=== PATIENT | female | born 1990 | race Hispanic/Latino ===

== ENCOUNTER 2019-07-26 01:28 | Inpatient (IN) | payer SELFPAY ==
[2019-07-26] MEDS ORDERED: Dextrose 50% Abboject 50 ML SYRINGE SLOW IVP PRN (02:08)
[2019-07-26] MEDS ORDERED: Dextrose 5% in Water 1,000 ML IV PRN (02:08)
[2019-07-26] MEDS ORDERED: Ondansetron PF 4 MG/2 ML Vial IVP PRN (02:08)
[2019-07-26] MEDS ORDERED: Ondansetron ODT 4 MG TAB PO PRN (02:08)
[2019-07-26] MEDS ORDERED: Morphine 2 MG/ML SYRINGE SLOW IVP PRN (02:08)
[2019-07-26 02:10] LABS: #Lymphocytes 1.2 thou/uL (1.20-3.40); #Monocytes 0.2 thou/uL (0.11-0.59); #Neutrophils 8.9 thou/uL (1.40-6.50); %Basophils 0.4 % (0.0-1.0); %Eosinophils 0.4 % (0.0-10.0); %Lymphocytes 11.2 % (21.0-51.0); %Monocytes 1.9 % (0.0-10.0); %Neutrophils 86.1 % (42.0-75.0); Hemoglobin 14.1 g/dL (12.0-16.0); Mean Corpuscular HGB CONC 34.8 g/dL (32.0-36.0); Mean Corpuscular Hemoglobin 32.8 pg (27.0-31.0); Mean Corpuscular Volume 94.3 fL (78.0-98.0); Mean Platelet Volume 7.5 fL (7.4-10.4); Platelet Count 252 thou/uL (130-400); RBC Distribution Width 12.1 % (11.5-14.5); Red Blood Cell (RBC) Count 4.31 mill/uL (4.20-5.40); White Blood Cell (WBC) Count 10.3 thou/uL (4.8-10.8)
[2019-07-26] MEDS ORDERED: traMADol HCl 50 MG TAB PO PRN ×2 (02:13)
[2019-07-26 02:16] LABS: BHCG - Serum Negative (NEGATIVE); Pregs Control Background? CLEAR/WHITE (CLR/WHITE); Pregs Control Bar Appear? YES (CONTROL BAR)
[2019-07-26 02:32] LABS: ALT (SGPT) 13 U/L (8-55); AST (SGOT) 20 U/L (5-34); Albumin 4.7 g/dL (3.5-5.0); Alcohol 272 mg/dL (Less than 10); Alkaline Phosphatase 57 U/L (40-110); Anion Gap 12 mmol/L (10-20); BUN (Urea Nitrogen) 9 mg/dL (7.0-18.7); Bilirubin, Total 0.2 mg/dL (0.2-1.2); Calc. Creatinine Clearance 0 mL/min (70-130); Calcium 8.9 mg/dL (7.8-10.44); Carbon Dioxide 24 mmol/L (22-29); Chloride 109 mmol/L (98-107); Estimated GFR-MDRD Greater than 90; Globulin 2.7 g/dL (2.4-3.5); Glucose 111 mg/dL (70-105); Potassium 4.1 mmol/L (3.5-5.1); Protein, Total 7.4 g/dL (6.0-8.3); Sodium 141 mmol/L (136-145)
[2019-07-26 02:33] LABS: Phosphorus 3.8 mg/dL (2.3-4.7)
--- NOTE | 2019-07-26 03:03 | HP ---
REQUESTING PHYSICIAN: Dr. Bah. CONSULTS: Orthopedic Surgery, Dr. Reilly. HISTORY OF PRESENT ILLNESS: This is a 28-year-old female, who was dancing and fell injuring her right ankle. The patient presented to the emergency room with obvious right ankle deformity and pain. She reports having approximately 5 alcoholic drinks tonight. The patient denies any other injuries or hitting her head. The patient was evaluated in the emergency room and was found to have a comminuted spiral fracture of the right tibia and fracture of the right distal fibula with out any neurovascular compromise. The patient's right ankle was splinted in the emergency room. Trauma services was asked to admit. REVIEW OF SYSTEMS: A 10-point review of systems is negative unless otherwise indicated in the above HPI. PAST MEDICAL HISTORY: Denies. ALLERGIES: PENICILLIN. HOME MEDICATIONS: None. SOCIAL HISTORY: Occasional alcohol use, denies smoking, denies any illicit drug use. PAST SURGICAL HISTORY: Denies. PHYSICAL EXAMINATION: VITAL SIGNS: Blood pressure 142/100, pulse 90, SpO2 of 99% on room air, respirations 18, and temperature 98.9. GENERAL: The patient is awake, alert and oriented, well-appearing female, in no apparent distress, positive EtOH. HEENT: Unremarkable, atraumatic, normocephalic. Pupils are equal, reactive, moist mucous membranes. NECK: No cervical tenderness, normal range of motion, trachea midline. RESPIRATORY: Equal chest rise and fall, bilateral breath sounds clear. No wheezing, rales or rhonchi. CARDIOVASCULAR: Regular rate, regular rhythm. No murmurs. ABDOMEN: Soft, nontender, and nondistended. BACK: Normal inspection, normal range of motion. EXTREMITIES: Right ankle pain; splint clean, dry, and intact; cap refill less than 2 seconds; distal pulses intact. Other extremities are unremarkable. NEUROLOGIC: Oriented to person, place, time, and event. No focal deficits. DIAGNOSTIC DATA: Chest x-ray, impression, no acute cardiopulmonary process. Ankle x-ray, right ankle comminuted spiral fracture of tibia, fracture of distal fibula. LABORATORY DATA: WBC 10.3, RBC 4.31, hemoglobin 14.1, hematocrit 40.6, and MCH 32.8. Serum negative. CMP is pending. ASSESSMENT: 1. Ground-level fall. 2. Right comminuted spiral fracture of the tibia and fracture of the distal fibula. 3. Acute alcohol intoxication. 4. Acute traumatic pain. PLAN: Admit to the surgical floor. Dr. Rielly plans to take the patient to the OR later today. The patient will be n.p.o. We will place a PT/OT consult to evaluate and treat postop. Most likely, the patient will be able to be discharged home postop if her pain is well controlled and able to ambulate safely. The plan will be discussed with the attending after this dictation. The plan was discussed with the patient, who agrees. Job ID: [id number] MTDD
[2019-07-26] MEDS: Acetaminophen 1,000 MG in Premix Bag 1 BAG IVPB SCH ×3 (05:42→17:46)
[2019-07-26] MEDS: Sodium Chloride 0.9% 1,000 ML IV SCH ×2 (05:42→17:09)
[2019-07-26] MEDS: Ibuprofen 600 MG TAB PO SCH ×3 (06:07→21:26)
[2019-07-26] MEDS ORDERED: Clindamycin/D5W 900 MG in Premix Bag 1 BAG IVPB SCH (07:15)
--- NOTE | 2019-07-26 07:29 | CON ---
DATE OF CONSULTATION: This is Cheikh Simmons PA-C dictating a report for Misbah Reilly MD. HISTORY OF PRESENT ILLNESS: The patient was out dancing last night, having a few drinks and stumbled and fell sustaining a right tibial fracture. The patient was unable to walk after the fracture. She denies any numbness and tingling on the right lower extremity. Sensations are good. She denies any other injuries with the fall. Since she has been here, she has been fairly comfortable. PAST MEDICAL HISTORY: Healthy. PAST SURGICAL HISTORY: None stated. SOCIAL HISTORY: Occasional EtOH. Smokes when drinking. No illicit drug use. MEDICATIONS: None. ALLERGIES: PENICILLIN. REVIEW OF SYSTEMS: Right lower extremity pain. Otherwise, no chest pain or shortness of breath. No bowel or bladder issues. Rest of review of systems is negative. PHYSICAL EXAMINATION: GENERAL: Well-nourished, well-developed young female, resting in bed, in room 3303 no acute distress. NEURO: Speech clear. Affect pleasant. Answers questions appropriately. She is alert and oriented x3/ HEENT: Normal exam. Face symmetric. Tongue midline. NECK: Supple. Trachea mid. RESPIRATORY: No acute distress. Breathing 16 per minute. EXTREMITIES: Upper extremities, equal size, shape and symmetry. Normal bulk and tone. Lower extremities, some pain in the right lower extremity. Movement, fair in the foot and digits. PT pulses on the right are equal with PT pulses on the left. ASSESSMENT: Tibial shaft fracture. PLAN: I spoke with the patient, went over the risks and benefits of surgery. Our plan is to do a tibial rodding. I explained the procedure, risks, and benefits. Her questions and concerns have been answered and she is amenable to go forth with surgery. We will get her on the surgery schedule, get her some antibiotics and get her set up for around 1230 hours this afternoon. Keep her n.p.o. through that time. If she has further questions prior to surgery, we will address those at that time. Job ID: [id number]
--- NOTE | 2019-07-26 08:47 | RAD ---
THREE VIEWS RIGHT ANKLE: DATE: 07/26/2019. COMPARISON: None. HISTORY: Fall, trauma, pain. FINDINGS: There is a comminuted obliquely oriented fracture involving the mid/distal right tibial shaft with 6 mm of lateral displacement in mild medial angulation. Additional obliquely oriented spiral-type frac ture line noted further distally within the right tibial shaft. In addition, there is a transverse f racture at the base of the medial malleolus in an obliquely oriented distal right fibular fracture. Posterior malleolar fracture noted on the lateral exam. No evidence for dislocation. IMPRESSION: Multiple fractures as described above. POS: [facility]
--- NOTE | 2019-07-26 08:52 | RAD ---
FRONTAL AND LATERAL IMAGING OF RIGHT TIBIA AND FIBULA: Date: 07/26/19 COMPARISON: None. HISTORY: Fall, trauma, pain. FINDINGS: Obliquely oriented, mildly displaced and angulated fracture of right tibial shaft at junction of midd le and distal third. Additional obliquely oriented fracture line noted within the distalmost aspect o f the right tibial shaft. There is also a transverse fracture at the base of the medial malleolus and an obliquely oriented fracture involving the distal fibular shaft. Mildly displaced posterior malleo lar fracture noted. IMPRESSION: Multiple fracture deformities of the right tibia/fibula distally as detailed above. POS: [facility]
--- NOTE | 2019-07-26 09:01 | RAD ---
PORTABLE UPRIGHT FRONTAL CHEST RADIOGRAPH: DATE: 07/26/2019. COMPARISON: None. HISTORY: Fall, trauma, preoperative patient. FINDINGS: Lungs are clear. Heart and mediastinal contours are unremarkable. IMPRESSION: No acute findings. POS: [facility]
[2019-07-26] MEDS ORDERED: Morphine 4 MG/ML VIAL SLOW IVP SCH (09:30)
[2019-07-26] MEDS ORDERED: Ondansetron PF 4 MG/2 ML Vial ONE (10:22)
[2019-07-26] MEDS ORDERED: Lidocaine 1% PF 5 ML VIAL ONE (10:22)
[2019-07-26] MEDS ORDERED: PROPOFOL 200 MG/20 ML VIAL ONE (10:22)
[2019-07-26] MEDS ORDERED: Ketorolac Tromethamine 30 MG/ML VIAL ONE (10:22)
--- NOTE | 2019-07-26 11:49 | PRG ---
DATE OF SERVICE: SUBJECTIVE: Ms. Cazares is a 28 years old_ female, who was dancing and drinking yesterday, fell and broke her right ankle. She is n.p.o. since midnight and ready to go to OR with Ortho today. This morning, the patient complained of pain of the right ankle 8 to 9/10. She then asked for PIM pain medication. Her vital signs are stable. OBJECTIVE: GENERAL: The patient lying down in bed comfortable with no acute respiratory distress, though she on moderate distress due to pain from the right ankle. VITAL SIGNS: Temperature 99, heart rate 88, respiratory rate 16, O2 saturation 96% on room air, blood pressure 108/62. LUNGS: Clear bilaterally. HEART: Regular rate and rhythm. ABDOMEN: Soft, nondistended. EXTREMITIES: Neurovascularly intact x4. Right lower extremity dry, clean, intact. No signs of compartment syndrome. NEUROLOGIC: No focal neurology deficits. ASSESSMENT: 1. Status post ground level fall. 2. Right comminuted spiral fracture of the tibia and fracture of the distal fibula, acute traumatic pain. PLAN: We will have morphine 4 mg one dose right now. Continue PIM where the patient plan to go to the OR with Orthopedics for ORIF of right ankle fracture today. Postop, the patient will work with PT and OT. Anticipate discharge home tomorrow. Job ID: [id number] MTDD
[2019-07-26] MEDS ORDERED: Morphine 4 MG/ML VIAL ONE (13:02)
[2019-07-26] MEDS ORDERED: Midazolam HCl 2 mg/2 ml Vial ONE (13:02)
[2019-07-26] MEDS ORDERED: Fentanyl 100 MCG/2 ML VIAL ONE ×2 (13:56→16:03)
[2019-07-26] MEDS ORDERED: Morphine Sulfate 2 MG/ML SYRINGE SLOW IVP PRN (14:52)
[2019-07-26] MEDS ORDERED: Promethazine HCl 25 MG/ML VIAL SLOW IVP PRN (14:52)
[2019-07-26] MEDS ORDERED: Promethazine HCl 25 MG/ML VIAL IM PRN (14:52)
[2019-07-26] MEDS ORDERED: Ondansetron HCl/PF 4 MG/2 ML Vial IVP PRN (14:52)
[2019-07-26] MEDS ORDERED: Meperidine HCl/PF 25 MG/ML VIAL ONE (15:39)
[2019-07-26] MEDS: Famotidine 20 MG TAB PO SCH ×2 (16:57→20:47)
[2019-07-26] MEDS: Polyethylene Glycol 3350 17 GM Packet PO SCH (16:57)
[2019-07-26] MEDS: Clindamycin/D5W 600 MG in Premix Bag 1 BAG IVPB SCH ×2 (17:09→21:26)
[2019-07-26] MEDS: Fentanyl 100 MCG/2 ML VIAL SLOW IVP PRN ×2 (17:49→22:12)
--- NOTE | 2019-07-26 18:46 | RAD ---
Radiograph right ankle 2 views: DATE: 07/26/2019 3:38 PM HISTORY: 28-year-old female with fractures of tibia and fibula. COMPARISON: 07/26/2019 1:27 AM FINDINGS: Small [id number] fluoroscopic spot images obtained with C-arm in the OR demonstrate interval place ment of lateral metallic plate and screws from distal fibular diaphysis to lateral malleolus. Lateral malleolar fracture fragments are in anatomical alignment. Comminuted displaced fracture of mi d-distal tibial shaft is partially included on the images. IMPRESSION: Status post open reduction internal fixation of lateral malleolar fracture.
--- NOTE | 2019-07-26 18:48 | RAD ---
Radiograph right leg tibia-fibula 2 views: DATE: 07/26/2019 4:29 PM HISTORY: 28-year-old female status post acute fractures of tibia and fibula. COMPARISON: 07/26/2019 at 1:26 AM FINDINGS: A total of 5 small [id number]-so-[id number] fluoroscopic spot images obtained with C-arm in the OR. Intramedulla ry nail has been placed through the entire tibial diaphysis, with proximal and distal stabilization screws. There has been interval reduction of the comminuted fracture of the tibial diaphysis. Alignme nt is anatomical. There has been placement of plate and screws across the distal fibula. IMPRESSION: Intramedullary nail fixation of the mid tibial shaft fracture.
[2019-07-26] MEDS: HYDROcodone/Acetaminophen 10/325 mg Tablet PO PRN (20:47)
[2019-07-26] MEDS ORDERED: FLU VACC QS2019-20(6MOS UP)/PF 60 MCG/0.5 ML SYRINGE IM ONE (21:00)
--- NOTE | 2019-07-26 22:01 | OP ---
DATE OF PROCEDURE: 07/26/2019 PREOPERATIVE DIAGNOSES: Right distal third tibial metadiaphyseal closed fracture with an accompanying Mo B right distal fibular fracture and a right distal tibial posterior malleolus fracture. POSTOPERATIVE DIAGNOSES: Right distal third tibial metadiaphyseal closed fracture with an accompanying Mo B right distal fibular fracture and a right distal tibial posterior malleolus fracture. PROCEDURES PERFORMED: Open reduction and internal fixation, Mo B distal fibular fracture with closed reduction with intramedullary nail fixation of distal third metadiaphyseal tibial fracture. Closed reduction and splinting of posterior malleolar ankle fracture. ASSEMBLER FILTERS: Dante Kent PA-C ANESTHESIA: General via LMA. COMPONENTS USED: Synthes 9 mm x 315 mm cannulated titanium tibial nail with three interlocking screws, one proximal, two distal, static as well as a tibular seven hole 3.5 locking stainless steel plate. TOURNIQUET TIME: 27 minutes. FINDINGS: Adequate bone stock and fractures as described on radiograph. ESTIMATED BLOOD LOSS: 250 mL. DRAINS: None. SPECIMENS: None. COMPLICATION: None. COUNTS: Correct. INDICATION FOR SURGERY: Linh is a 28-year-old female, who apparently injured herself yesterday evening while dancing. She fell resulting in a right distal tibial fracture as described on radiographs. She has elected to proceed with open reduction and internal fixation of her distal fibular fracture, closed reduction of the posterior malleolus and intramedullary nail fixation of the tibia as definitive treatment of this problem. DESCRIPTION OF PROCEDURE: After informed consent was obtained in the preoperative holding area, the patient received preoperative antibiotics, was taken to the operative suite. General anesthesia was induced and LMA was placed secured. Once adequate anesthesia was obtained, the patient was positioned appropriately in the supine position. Prior to exsanguination, a time-out was called and a multidisciplinary time-out was observed. After this, the tourniquet was raised, where it remained for the portion of the fibular fixation. A lateral incision was made directly over the fibular fracture. Sharp dissection was carried down to the bone. Periosteal elevator was used to remove the periosteum. We chose a seven hole plate, the medial reduction was achieved with lobster claw clamps in AP plane. We used an interfrag screw to preliminary hold the fracture in place. I then placed a seven hole plate with preliminarily bending and contouring intraoperatively. We used a seven hole span three at top and two screws distal. Attention was then turned to intramedullary preparation and closed reduction was performed. Fluoroscopy was brought into the field and an entry hole was obtained with a guide pin. We chose a patella tendon split. It was center-center and AP projection and lateral was appropriate. This was over-reamed with a 15 mm entry reamer. We placed the intramedullary reaming eliza down with ball-tip to the ankle. This was obtained in AP view. It was confirmed with lateral views. Once this was completed, sequential reaming in a reduced state was performed up to 10 mm. We then chose a 9 mm nail. It was malleted squarely into place. The outrigger was used to place the proximally locking screw and the perfect circles were used to visualize the distal screws and then two AP screws were placed. A copious irrigation was carried out at the entry site. Stainless steel cassi were used to reapproximate the skin. In the entry hole, we used a 0 Vicryl interrupted simple stitches followed by subcutaneous 2-0 stitches and stainless steel cassi to reapproximate the skin. Sterile dressings were applied in all areas. A posterior splint was applied and allowed to cure and the procedure was terminated without any complications. Also of note, the tourniquet was not used for the tibial nail portion of the case. This was used only for the distal fibula fixation. The patient was taken to recovery room in stable condition and the LMA was removed. Job ID: [id number]
--- NOTE | 2019-07-26 22:12 | PRG ---
DATE OF SERVICE: 07/26/2019 SUBJECTIVE: The patient remains on the surgical floor. The patient is postop repair of her right comminuted spiral fracture of the tibia and fracture of the distal fibula. The patient is currently awake, alert, in no distress. The patient is tolerating a regular diet. The patient continues to have moderate pain. The patient has not worked with Physical Therapy yet. OBJECTIVE: VITAL SIGNS: Stable, afebrile. GENERAL: Awake and alert, resting in hospital bed, in no acute distress. The patient does report moderate amount of pain to right ankle. RESPIRATORY: Equal chest rise and fall. No respiratory distress. Good inspiratory and expiratory effort. HEART: Regular rate, regular rhythm. EXTREMITIES: Neurovascularly intact x4. Right lower extremity splint clean, dry, and intact. Cap refill less than 2 seconds. ASSESSMENT: 1. Status post ground level fall. 2. Right comminuted spiral fracture of the tibia and fracture of the distal fibula, postop repair today. 3. Acute traumatic pain. PLAN: Continue supportive care. We will stop patient's IV maintenance fluids as she is tolerating diet and fluids. We will schedule the patient's pain regimen. The patient will work with Physical and Occupational Therapy tomorrow morning. The patient should be able to be discharged home if she is able to ambulate safely and her pain is well controlled. Plan was discussed with the patient's family, who agrees. Job ID: [id number]
[2019-07-27] MEDS: Acetaminophen 325 MG TAB PO SCH ×2 (00:01→06:20)
[2019-07-27] MEDS: HYDROcodone/Acetaminophen 10/325 mg Tablet PO PRN ×3 (03:19→12:56)
[2019-07-27] MEDS: Clindamycin/D5W 600 MG in Premix Bag 1 BAG IVPB SCH (06:20)
[2019-07-27] MEDS: Ibuprofen 600 MG TAB PO SCH ×2 (06:20→12:55)
[2019-07-27] MEDS ORDERED: diphenhydrAMINE 25 MG CAP PO PRN (06:36)
[2019-07-27] MEDS: Polyethylene Glycol 3350 17 GM Packet PO SCH (08:01)
[2019-07-27] MEDS: Famotidine 20 MG TAB PO SCH (08:07)
[2019-07-27 12:42] VITALS: BP 111/73; TEMP 98.2
--- NOTE | 2019-07-27 12:56 | DIS ---
DATE OF ADMISSION: 07/26/2019 DATE OF DISCHARGE: 07/27/2019 DISCHARGE DIAGNOSES: Fall from standing, right comminuted spiral fracture of the distal tibia and fibula, acute alcohol intoxication. DISCHARGE DIAGNOSES: Fall from standing, right comminuted spiral fracture of the distal tibia and fibula, acute alcohol intoxication. CONSULTING PHYSICIAN: Dr. Reilly of Orthopedic Surgery. PROCEDURES: The patient went to the OR on June 25, 2019, for an open reduction and internal fixation, Mo B distal fibular fracture with closed reduction and intramedullary nail fixation of distal third metadiaphyseal tibial fracture. Closed reduction and splinting of posterior malleolar ankle fracture. HOSPITAL COURSE: The patient is a 28-year-old female, who presented to the emergency department after a fall while dancing. The patient was intoxicated at the time and was found that she had a right comminuted spiral fracture of the distal right tib-fib. She was admitted to the hospital and was kept n.p.o. She was taken to the OR later that morning by Dr. Reilly for fixation of her right ankle fracture. Postoperatively, she was kept overnight for pain control. At the time of discharge, her pain is well controlled. She was tolerating a regular diet. She was able to get around safely with crutches after seeing Physical Therapy. The patient is originally from [place] and will follow up there with an orthopedic surgeon. DISCHARGE DISPOSITION: Home. DISCHARGE CONDITION: Satisfactory. PHYSICAL EXAMINATION: VITAL SIGNS: Temperature 98, pulse 69, respirations 16, oxygen saturation 97% on room air, blood pressure 144/68. GENERAL: Well-appearing young female, sitting up in bed with no signs of acute distress. PULMONARY: Equal chest rise and fall. Clear breath sounds bilaterally. No signs of acute respiratory distress. CARDIAC: Regular rate and rhythm. No murmurs, gallops, or rubs. GASTROINTESTINAL: Soft, nontender, nondistended. EXTREMITIES: 2+ pulses in all extremities. Gross motor and sensation are intact. Right ankle with dressing that is clean, dry, and in place. Normal motor and sensation to right foot. NEUROLOGIC: GCS is 15. DISCHARGE INSTRUCTIONS: The patient will be discharged home, activity as tolerated. Nonweightbearing right lower extremity. Regular diet with no restrictions. No PT and OT. She will receive crutches. DISCHARGE MEDICATIONS: Include, 1. Tylenol. 2. Ibuprofen. 3. MiraLAX. 4. Tramadol. 5. Flexeril. FOLLOWUP APPOINTMENTS: The patient is to follow up with Dr. Reilly or other orthopedic surgeon in [place] in 2 weeks. No need for followup with Trauma Surgery. This is a summary of the patient's hospitalization. For full details, please see her medical record in its entirety. Job ID: [id number]
== END 2019-07-27 12:45 | disposition home or self-care (01) | DRG 494 ==
LOC: ERS 01:28 → SURG A 04:33
PROVIDERS: ADMIT Specialist; ATTEND Specialist
PROC: 0QSG06Z Reposition Right Tibia with Intramedullary Internal Fixation Device, Open Approach (ICD-10-PCS; principal; 2019-07-26)
PROC: 0QSJ04Z Reposition Right Fibula with Internal Fixation Device, Open Approach (ICD-10-PCS; 2019-07-26)
PROC: 3E02340 Introduction of Influenza Vaccine into Muscle, Percutaneous Approach (ICD-10-PCS; 2019-07-26)
DX: S82.251A Displaced comminuted fracture of shaft of right tibia, initial encounter for closed fracture (principal); S82.431A Displaced oblique fracture of shaft of right fibula, initial encounter for closed fracture; S82.51XA Displaced fracture of medial malleolus of right tibia, initial encounter for closed fracture; F17.200 Nicotine dependence, unspecified, uncomplicated; F10.129 Alcohol abuse with intoxication, unspecified; Y90.8 Blood alcohol level of 240 mg/100 ml or more; W18.30XA Fall on same level, unspecified, initial encounter; Y93.41 Activity, dancing; Z88.0 Allergy status to penicillin; Z23 Encounter for immunization
CPT/HCPCS: 29515; 36415; 71045; 76000; 80053; 80307; 83735; 84100; 84703; 85025; 90471; 90686; 93005; C1713; C1769; G0008; G0390; J0131; J1885; J2001; J2175; J2250; J2270; J2405; J2704; J3010; J3490; Q0163